=== PATIENT | female | born 1990 | race Caucasian/White ===

== ENCOUNTER 2020-06-09 00:35 | Inpatient (IN) | payer BC ==
[2020-06-09 01:36] LABS: Appearance,Urine Clear (Clear); Bacteria,Urine Rare /hpf; Bilirubin,Urine Negative (Negative); Blood,Urine Negative (Negative); Color,Urine Yellow; Glucose,Urine (UA) Negative (Negative); Hyaline Casts,Urine 3 /lpf (0-2); Ketones,Urine Trace (Negative); Leukocyte Esterase,Urine Trace (Negative); Mucus,Urine Moderate /hpf; Nitrite,Urine Negative (Negative); Protein,Urine 1+ (Negative); RBC,Urine 1 /hpf (0-5); Specific Gravity,Urine 1.029 (1.001-1.035); Squamous Epithelial Cell,Urine 2 /hpf (0-4); Urobilinogen,Urine <2.0 mg/dL (<2.0); WBC,Urine 6 /hpf (0-5)
[2020-06-09 02:50] LABS: ALT 11 U/L (4-34); AST 22 U/L (14-36); African American GFR (CKD) >90 (>60 ml/min/1.73 sqM); Blood Urea Nitrogen 11 mg/dL (7-17); LDH 364 U/L (313-618); Non-African American GFR(CKD) >90 (>60 ml/min/1.73 sqM); Uric Acid 5.9 mg/dL (3.7-7.4)
[2020-06-09 02:50] LABS: Amphetamine Screen,Urine Not Detected (NotDetected); Barbiturate Screen,Urine Not Detected (NotDetected); Benzodiazepines Screen,Urine Not Detected (NotDetected); Cocaine Screen,Urine Not Detected (NotDetected); Methadone Screen, Urine Not Detected (NotDetected); Opiate Screen,Urine Not Detected (NotDetected); Oxycodone Screen, Urine Not Detected (NotDetected); Phencyclidine Screen,Urine Not Detected (NotDetected); Tricyclic Antidepressant,Urine Not Detected (NotDetected); Urn Cannabinoid Scrn Not Detected (NotDetected)
[2020-06-09 02:52] LABS: Creatinine,Urine Random 245.6 mg/dL; Protein/Creatinine Ratio,Urine 0.033
[2020-06-09 03:04] LABS: Basophils % (A) 0 %; Eosinophils % (A) 0 %; HCT 36.8 % (34.0-46.0); HGB 12.7 gm/dL (11.4-16.0); Lymphocytes # (A) 1.9 k/uL (1.0-4.8); Lymphocytes % (A) 21 %; MCH 30.8 pg (25.0-35.0); MCHC 34.5 g/dL (31.0-37.0); MCV 89.4 fL (80.0-100.0); Mean Platelet Volume 7.2; Monocytes # (A) 0.5 k/uL (0-1.0); Monocytes % (A) 6 %; Neutrophils # (A) 6.5 k/uL (1.3-7.7); Neutrophils % (A) 72 %; Platelet Count 210 k/uL (150-450); RBC 4.12 m/uL (3.80-5.40); RDW 13.6 % (11.5-15.5)
[2020-06-09 03:33] LABS: INR 0.9 (<1.2); Prothrombin Time 9.5 sec (9.0-12.0)
[2020-06-09 03:45] LABS: Partial Thromboplastin Time 21.2 sec (22.0-30.0)
[2020-06-09] MEDS ORDERED: LIDOCAINE 0.5% (PF) 5 MG/ML (50 ML SDV) SQ PRN (03:59)
[2020-06-09] MEDS ORDERED: TERBUTALINE 1 MG/ML VIAL SQ PRN (03:59)
[2020-06-09] MEDS ORDERED: METHYLERGONOVINE 0.2 MG/ML 1 ML AMP IM PRN (03:59)
[2020-06-09] MEDS ORDERED: OXYTOCIN 10 UNIT/ML 1 ML VIAL IM PRN (03:59)
[2020-06-09] MEDS ORDERED: CARBOPROST TROMETHAMINE 250 MCG/ML 1 ML AMP IM PRN (03:59)
[2020-06-09] MEDS ORDERED: CLINDAMYCIN 900 MG in DEXTROSE 5% IN WATER 50 ML IVPB STA ×2 (04:05)
[2020-06-09] MEDS ORDERED: CLINDAMYCIN 600 MG in DEXTROSE 5% IN WATER 50 ML IVPB STA ×2 (04:09)
[2020-06-09] MEDS: LACTATED RINGERS 1,000 ML IV SCH ×3 (04:43→17:10)
[2020-06-09] MEDS: OXYTOCIN 30 UNITS/500 ML NS 30 UNIT in SALINE 1 500ML.BAG IV SCH (08:46)
--- NOTE | 2020-06-09 10:02 | P.HPOB ---
History of Present Illness H&P Date: 06/09/20 Chief Complaint: Urine term: Active labor Patient is a 22-year-old at 39 and 2 based on what she relates is a 6 week ultrasound through her primary care provider. She did not receive care essentially. She states that she saw her primary care provider's nurse or nurse practitioner through approximately 20 or so weeks before they were able to refer her to what I believe is a nurse rd lab technician who she says she saw on 2 occasions sometime after 27 weeks. She relates that sometime in April her family got Covid and she had not seen the provider since that time. She has no group B strep status she has no labs and no ultrasound. I note absolutely verification of do day, but she is making cervical change and an ultrasound at this point will not be terribly accurate due to position of the baby and active labor. Her story is, complicated by the fact that she relates that her boyfriend was arrested last night. She also relates that she was even sure what her provider's name was no exactly where they are located nor did she have a phone number. She believes she was to be delivered out of [facility] but they did not do rd lab technician delivers at that hospital. She told me that we would be unable to contact her provider as she was on vacation in [place] this week. It is curious from my standpoint that she knows that the provider will be gone this week despite the fact that she hasn't seen them in approximately 6 weeks. However, I have no way of individually verifying who this provider is so we are treating this as if she has had no care. She is dilated to 3 cm 80% effaced -2 station she was 1 cm on presentation. She does have a history of hypertension that her primary care provider. It was starting to workup prior to her . She's had several blood pressures that are mildly elevated and she relates that she was supposed to be taking some type of blood pressure medication but she doesn't know what was nor did she started. Reclamped labs were ordered and all were normal. Will plan artificial rupture membranes and expect vaginal delivery. She is not plan to use an epidural but that will depend on how she does pain-xiong. Past medical history none past surgical history wisdom teeth ALLERGIES ampicillin which is anaphylactic. Family history mother with breast cancer. Social history she denies area did a urine drug she was negative. Assessment intrauterine at term. Plan expect spontaneous vaginal delivery Past Medical History Past Medical History: No Reported History History of Any Multi-Drug Resistant Organisms: None Reported Additional Past Surgical History / Comment(s): Pt reports orthopedic surgery on foot and arm in past Past Anesthesia/Blood Transfusion Reactions: No Reported Reaction Past Psychological History: No Psychological Hx Reported Smoking Status: Never smoker Past Alcohol Use History: None Reported Past Drug Use History: None Reported - Past Family History Father Family Medical History: Hyperlipidemia, Hypertension Mother Family Medical History: Cancer Additional Family Medical History / Comment(s): Breast cancer Medications and Allergies Home Medications Medication Instructions Recorded Confirmed Type Pnv,Calcium 72/Iron/Folic Acid 1 tab PO DAILY 06/09/20 06/09/20 History [ Plus Tablet] Allergies Allergy/AdvReac Type Severity Reaction Status Date / Time Penicillins Allergy Severe Anaphylaxis Verified 06/09/20 04:09 Exam Osteopathic Statement: *. No significant issues noted on an osteopathic structural exam other than those noted in the History and Physical/Consult. Vital Signs Temp Pulse Resp BP Pulse Ox 06/09/20 04:06 98.1 F 88 16 132/92 06/09/20 03:24 68 16 120/78 06/09/20 00:51 97.0 F L 100 16 161/86 98 Intake and Output 06/08/20 06/09/20 06/09/20 22:59 06:59 14:59 Other: # Voids 1 Weight 96.615 kg - OBG Physical Exam Breast: both: normal (no masses) Abdomen: bowel sounds normal, no diffuse tenderness, no bruit present, no guarding noted, no hepatomegaly, no splenomegaly, no mass Vulva: both: normal Vagina: normal moisture, no discharge Cervix: no lesion, no discharge Uterus: normal size, normal contour Adnexa: both: normal Anus/Rectum: normal perianal skin, no rectal mass, no hemorrhoids, heme negative Results Result Diagrams: 06/09/20 02:30 06/09/20 04:38 Abnormal Lab Results - Last 24 Hours (Table) 06/09/20 06/09/20 Range/Units 00:59 02:30 APTT 21.2 L (22.0-30.0) sec Fibrinogen 544 H (200-500) mg/dL Urine Protein 1+ H (Negative) Urine Ketones Trace H (Negative) Ur Leukocyte Esterase Trace H (Negative) Urine WBC 6 H (0-5) /hpf Urine Bacteria Rare H (None) /hpf Hyaline Casts 3 H (0-2) /lpf Urine Mucus Moderate H (None) /hpf
[2020-06-09] MEDS: BUTORPHANOL 1 MG/ML 1 ML VIAL IV PRN ×2 (10:08→13:59)
[2020-06-09 10:17] LABS: Hepatitis B Surface Antigen Non-Reactive (Non-Reactive)
[2020-06-09] MEDS ORDERED: CLINDAMYCIN 900 MG in DEXTROSE 5% IN WATER 50 ML IVPB SCH ×2 (12:30)
[2020-06-09] MEDS: CLINDAMYCIN 600 MG in DEXTROSE 5% IN WATER 50 ML IVPB SCH ×4 (13:00→20:31)
[2020-06-09] MEDS ORDERED: fentaNYL (PF) 50 MCG/ML 5 ML AMP ONE (17:06)
[2020-06-09] MEDS ORDERED: SODIUM CHLORIDE 0.9% 100 ML BAG ONE (17:06)
[2020-06-09] MEDS ORDERED: ROPIVACAINE 5MG/ML 20ML VIAL ONE (17:06)
[2020-06-09] MEDS ORDERED: CITRIC ACID-SODIUM CITRATE 15 ML CUP PO ONE (21:17)
[2020-06-09] MEDS ORDERED: SUCCINYLCHOLINE CHLORIDE 100 MG/5 ML SYR IV ONE (21:31)
[2020-06-09] MEDS ORDERED: ONDANSETRON 4 MG/2 ML VIAL ONE (21:31)
[2020-06-09] MEDS ORDERED: ROCURONIUM 10 MG/ML (5 ML VIAL) IV ONE (21:31)
[2020-06-09] MEDS ORDERED: KETOROLAC 15 MG/ML 1 ML VIAL ONE (21:31)
[2020-06-09] MEDS ORDERED: OXYTOCIN 10 UNIT/ML 1 ML VIAL ONE (21:31)
[2020-06-09] MEDS ORDERED: NEOSTIGMINE 1 MG/ML 10 ML VIAL ONE (21:31)
[2020-06-09] MEDS ORDERED: GLYCOPYRROLATE 0.2 MG/ML 2 ML VIAL ONE (21:31)
[2020-06-09] MEDS ORDERED: PROPOFOL 10 MG/ML 20 ML VIAL IV ONE (21:31)
[2020-06-09] MEDS ORDERED: ONDANSETRON 4 MG/2 ML VIAL IVP PRN (22:21)
[2020-06-09] MEDS ORDERED: ZOLPIDEM 5 MG TAB PO PRN (22:21)
[2020-06-09] MEDS ORDERED: MEASLES-MUMPS-RUBELLA VACC/PF 12,500 UNIT/0.5 ML VIAL SQ ONE (22:21)
[2020-06-09] MEDS ORDERED: diphenhydrAMINE 25 MG CAP PO PRN (22:21)
[2020-06-09] MEDS ORDERED: METOCLOPRAMIDE 5 MG/ML 2 ML VIAL IVP PRN (22:21)
[2020-06-09] MEDS ORDERED: diphenhydrAMINE 50 MG/ML 1 ML VIAL IVP PRN ×2 (22:21)
[2020-06-09] MEDS ORDERED: NALOXONE 0.4 MG/ML 1 ML VIAL IV PRN (22:21)
[2020-06-09] MEDS ORDERED: diphenhydrAMINE 50 MG CAP PO PRN (22:21)
[2020-06-09] MEDS ORDERED: HYDROmorphone PCA 10 MG/50 ML BAG IV PRN (22:21)
--- NOTE | 2020-06-09 22:27 | P.OP ---
Date of Procedure: 06/09/20 Preoperative Diagnosis: Intrauterine at term: No care: Arrest of descent and dilation Postoperative Diagnosis: Same several pelvic disproportion Procedure(s) Performed: Primary low transverse section Anesthesia: GETA, epidural Surgeon: Mac De Jesus Industrial Design Engineer #1: Jean Marie Fairchild Estimated Blood Loss (ml): 500 IV fluids (ml): 500 Urine output (ml): 100 Pathology: other (Placenta) Condition: stable Disposition: floor Operative Findings: Female viable scores and weight pending Description of Procedure: Patient was taken to the operating suite where a general anesthetic was found be adequate. The epidural was not working and she declined spinal. Once anesthesia was adequate Pfannenstiel skin incision was made this incision was then carried through to the underlying layer of the fascia with the second knife. Fascia was then nicked in the midline and this opening was extended laterally with Lainez scissors. Superior and inferior aspect of this incision were then grasped with Carrol clamps elevated and sharply and bluntly dissected. Once this was completed peritoneal layer was entered sharply and this layer was then extended superiorly and inferiorly with good visualization of both bowel bladder. Bladder blade was then placed in the bladder flap identified. It was entered with Metzenbaum scissors and carried across face the uterus and then bluntly dissected out of the operative field. Knife was then used to incise uterus. The incision was fully developed with hemostat and extended bluntly. Head was then H medically delivered followed by anterior posterior shoulders from left occiput transverse position. Once baby was delivered nursery personnel was present to assume care. Umbilical cords clamped cut usual fashion and mouth nares were bulb suctioned. Placenta was then delivered intact Pitocin was added to the IV. Uterus was then exteriorized cleared of clots and debris and closed in 2 layers with 0 Vicryl suture. Once excellent hemostasis was obtained blood and debris was suctioned from the posterior cul-de-sac and uterus was reinserted into the abdomen. Peritoneal layer was then identified and sintia sed with 0 Vicryl suture. Fascial layer was closed with 0 Vicryl suture. One layer of 3-0 Vicryl was placed in deep subcuticular tissues to reapproximate skin and close the space. Skin was then closed with 3-0 Vicryl subcuticular. Sponge, lap, needle counts were all correct 2. Patient was then taken to the recovery room in stable and satisfactory condition.
[2020-06-10] MEDS: OXYTOCIN 30 UNITS/500 ML NS 30 UNIT in SALINE 1 500ML.BAG IV SCH (00:18)
[2020-06-10] MEDS: LACTATED RINGERS 1,000 ML IV SCH ×4 (00:38→11:18)
--- NOTE | 2020-06-10 06:34 | P.PNOBGPC ---
Subjective - Subjective Principal diagnosis: Post op day 1 Interval history: Overall Mela is doing well. She is able to ambulate and void. She is tolerating liquids BuSpar. We'll plan to increase her diet later today and plan to remove the ORTHOTIST/PROSTHETIST and switch her to pain pills later today as well. All questions are answered for her at this time. Her vital signs are overall stable. It is noted that her blood pressures have improved dramatically as well. Patient reports: Reports appetite normal, Reports voiding normally, Reports pain well controlled, Reports ambulating normally [place]: doing well Objective - Vital Signs Latest vital signs: Vital Signs Temp Pulse Resp BP Pulse Ox 06/10/20 04:00 98.1 F 78 16 103/65 94 L 06/10/20 00:46 97.0 F L 66 14 134/80 95 06/10/20 00:16 72 18 135/82 06/09/20 23:46 62 16 140/87 06/09/20 23:31 80 14 156/95 06/09/20 23:16 80 18 140/80 06/09/20 23:01 68 16 138/65 99 06/09/20 22:46 97.6 F 73 16 138/78 96 Intake and Output 06/09/20 06/09/20 06/10/20 14:59 22:59 06:59 Intake Total 1000 13.9 155.167 Output Total 700 Balance 1000 -686.1 155.167 Intake: IV 1000 Intake, IV Titration 13.9 155.167 Amount Oxytocin 30 Units/500 ml 13.9 155.167 Ns 30 unit In Saline 1 500ml.bag @ Per Protocol IV .[facility] Rx#:[id number] Output: Urine 200 Estimated Blood Loss 500 Other: # Voids 2 - Exam Lungs: bilateral: normal Chest: Normal S1, Normal S2 Extremities: Present: normal Abdomen: Present: normal appearance, soft. Absent: distention, tenderness Incision: Present: normal, dry, intact Uterus: Present: normal, firm
[2020-06-10 06:51] LABS: Basophils % (A) 0 %; Eosinophils % (A) 0 %; HCT 36.1 % (34.0-46.0); Lymphocytes # (A) 2.6 k/uL (1.0-4.8); Lymphocytes % (A) 20 %; MCH 29.7 pg (25.0-35.0); MCHC 33.2 g/dL (31.0-37.0); MCV 89.7 fL (80.0-100.0); Monocytes # (A) 0.5 k/uL (0-1.0); Monocytes % (A) 4 %; Neutrophils # (A) 9.9 k/uL (1.3-7.7); Neutrophils % (A) 75 %; Platelet Count 213 k/uL (150-450); RBC 4.02 m/uL (3.80-5.40); RDW 13.7 % (11.5-15.5); WBC 13.1 k/uL (3.8-10.6)
[2020-06-10] MEDS: KETOROLAC 15 MG/ML 1 ML VIAL IVP SCH ×3 (06:52→18:13)
[2020-06-10] MEDS: SENNOSIDES-DOCUSATE SODIUM 1 EACH TAB PO SCH (08:21)
[2020-06-10] MEDS ORDERED: diphenhydrAMINE 50 MG/ML 1 ML VIAL IVP PRN ×2 (18:37)
[2020-06-10] MEDS ORDERED: diphenhydrAMINE 25 MG CAP PO PRN (18:37)
[2020-06-10] MEDS ORDERED: METOCLOPRAMIDE 5 MG/ML 2 ML VIAL IVP PRN (18:37)
[2020-06-10] MEDS ORDERED: diphenhydrAMINE 50 MG CAP PO PRN (18:37)
[2020-06-10] MEDS ORDERED: NALOXONE 0.4 MG/ML 1 ML VIAL IV PRN (18:37)
[2020-06-10] MEDS ORDERED: ZOLPIDEM 5 MG TAB PO PRN (18:37)
[2020-06-10] MEDS ORDERED: ONDANSETRON 4 MG/2 ML VIAL IVP PRN (18:37)
[2020-06-10] MEDS ORDERED: ACETAMINOPHEN TAB 500 MG TAB PO PRN (18:37)
[2020-06-10] MEDS ORDERED: LACTATED RINGERS 1,000 ML IV SCH (18:45)
[2020-06-10] MEDS ORDERED: SENNOSIDES-DOCUSATE SODIUM 1 EACH TAB PO SCH (20:00)
[2020-06-11] MEDS: SENNOSIDES-DOCUSATE SODIUM 1 EACH TAB PO SCH ×3 (00:29→20:34)
[2020-06-11] MEDS: LABETALOL 100 MG TAB PO SCH ×4 (00:29→20:39)
[2020-06-11] MEDS: IBUPROFEN 600 MG TAB PO SCH ×4 (03:54→20:34)
[2020-06-11 07:43] LABS: Basophils % (A) 0 %; Eosinophils # (A) 0.1 k/uL (0-0.7); Eosinophils % (A) 1 %; HCT 31.8 % (34.0-46.0); HGB 10.8 gm/dL (11.4-16.0); Lymphocytes # (A) 1.5 k/uL (1.0-4.8); Lymphocytes % (A) 20 %; MCH 30.6 pg (25.0-35.0); MCV 89.8 fL (80.0-100.0); Monocytes # (A) 0.4 k/uL (0-1.0); Monocytes % (A) 5 %; Neutrophils # (A) 5.6 k/uL (1.3-7.7); Neutrophils % (A) 73 %; Platelet Count 183 k/uL (150-450); RBC 3.54 m/uL (3.80-5.40); RDW 13.7 % (11.5-15.5); WBC 7.6 k/uL (3.8-10.6)
--- NOTE | 2020-06-11 08:55 | P.PNOBGPC ---
Subjective - Subjective Principal diagnosis: Postop day 2 Interval history: Doing well other than sore. She is able to ambulate, void and she is tolerating a diet. All questions are answered for her at this time and will plan to continue current care Patient reports: Reports appetite normal [place]: doing well (On [place] blanket) Objective - Vital Signs Latest vital signs: Vital Signs Temp Pulse Resp BP Pulse Ox 06/11/20 00:00 98.9 F 90 16 137/85 100 06/10/20 20:00 98.8 F 87 16 135/88 98 06/10/20 16:00 98.3 F 94 16 135/75 98 06/10/20 12:00 98.1 F 81 16 129/86 98 Intake and Output 06/10/20 06/11/20 06/11/20 22:59 06:59 14:59 Other: # Voids 1 1 - Exam Lungs: bilateral: normal Chest: Normal S1, Normal S2 Extremities: Present: normal Abdomen: Present: normal appearance, soft. Absent: distention, tenderness Incision: Present: normal, dry, intact Uterus: Present: normal, firm - Labs Labs: Abnormal Lab Results - Last 24 Hours (Table) 06/11/20 Range/Units 06:38 RBC 3.54 L (3.80-5.40) m/uL Hgb 10.8 L (11.4-16.0) gm/dL Hct 31.8 L (34.0-46.0) %
[2020-06-11 15:17] LABS: C. trachomatis,PCR Negative (Neg,Equiv); Chlamydia trachomatis Source Urine; N. gonorrhoeae,PCR Negative (Neg,Equiv); Neisseria Source Urine
[2020-06-12] MEDS: IBUPROFEN 600 MG TAB PO SCH ×2 (03:35→11:38)
[2020-06-12] MEDS: SENNOSIDES-DOCUSATE SODIUM 1 EACH TAB PO SCH (08:09)
--- NOTE | 2020-06-12 09:08 | P.DS ---
Providers Date of admission: 06/09/20 04:03 Expected date of discharge: 06/12/20 Attending physician: Mac De Jesus Primary care physician: Stated None Hospital Course: Patient is doing very well postop day 3. She is ambulating, voiding and tolerating her diet. She voices no complaints. Vital signs are stable and afebrile. Heart regular, lungs clear, extremities without pain. Abdomen soft and nontender. Positive bowel sounds are noted. She has minimal swelling in her incision is clean dry and intact. She'll follow up with me in 1 week. Prescription for Motrin and [place] or forwarded to the pharmacy. All questions are answered for her prior to her discharge. It is noted that her blood pressures have remained relatively stable without taking labetalol consistently therefore we'll discharge her home without a prescription and we'll reevaluate her blood pressure in the office. Will be encouraged to follow up with this with her primary care provider moving forward. Patient Condition at Discharge: Good Plan - Discharge Summary New Discharge Prescriptions: New HYDROcodone/APAP 5-325MG [[place] 5-325] 1 tab PO Q4HR PRN #30 tab PRN Reason: Pain Ibuprofen [Motrin] 600 mg PO Q6HR PRN #30 tab PRN Reason: Pain No Action Pnv,Calcium 72/Iron/Folic Acid [ Plus Tablet] 1 tab PO DAILY Discharge Medication List Pnv,Calcium 72/Iron/Folic Acid [ Plus Tablet] 1 tab PO DAILY 06/09/20 [History] HYDROcodone/APAP 5-325MG [[place] 5-325] 1 tab PO Q4HR PRN #30 tab 06/12/20 [Rx] Ibuprofen [Motrin] 600 mg PO Q6HR PRN #30 tab 06/12/20 [Rx] Follow up Appointment(s)/Referral(s): Mac De Jesus DO [Doctor of Osteopathic Medicine] - 1 Week Activity/Diet/Wound Care/Special Instructions: Lifting, limit stairs and driving, and pelvic rest. If any high temperatures, heavy bleeding, or severe pain call my office. No tub baths for 2 weeks, showering is fine. wash and clean incision twice daily with gentle soap and water Discharge Disposition: HOME SELF-CARE
[2020-06-12 09:50] VITALS: RESP 18
[2020-06-12] MEDS: LABETALOL 100 MG TAB PO SCH (09:51)
[2020-06-12 12:27] VITALS: BP 134/86; PULSE 90; TEMP 98.5
[2020-06-12] MEDS: LACTATED RINGERS 1,000 ML IV SCH (12:29)
[2020-06-16 17:45] LABS: HIV 2 AB Non-Reactive (Non-Reactive); HIV AB P24 Non-Reactive (Non-Reactive); HIV P24 AG Non-Reactive (Non-Reactive)
== END 2020-06-12 14:10 | disposition home or self-care (01) | DRG 788 ==
LOC: FBPOP 00:35 → 4FBP 04:03
PROVIDERS: ADMIT Obstetrics & Gynecology; ATTEND Obstetrics & Gynecology
PROC: 10D00Z1 Extraction of Products of Conception, Low, Open Approach (ICD-10-PCS; principal; 2020-06-09 22:00)
DX: O33.8 Maternal care for disproportion of other origin (principal); O16.4 Unspecified maternal hypertension, complicating childbirth; I10 Essential (primary) hypertension; Z37.0 Single live birth; Z3A.39 39 weeks gestation of pregnancy; Z80.3 Family history of malignant neoplasm of breast; Z82.49 Family history of ischemic heart disease and other diseases of the circulatory system; Z88.0 Allergy status to penicillin
CPT/HCPCS: 59025; 80306; 81001; 82565; 82570; 82947; 83615; 84156; 84450; 84460; 84520; 84550; 85025; 85384; 85610; 85730; 86762; 86780; 86850; 86900; 86901; 87340; 87390; 87491; 87591; 99213

== ENCOUNTER 2021-09-07 12:28 | Outpatient (CLI) | payer BC ==
[2021-09-07 13:46] VITALS: BP 130/75; PULSE 90; RESP 18; TEMP 97.2
--- NOTE | 2021-09-26 08:30 | P.MSEPDOC ---
Presenting Problems - Arrival Data Date of Arrival on Unit: 09/07/21 Time of Arrival on Unit: 12:28 Mode of Transport: Ambulatory - Complaint OB-Reason for Admission/Chief Complaint: Rule Out SROM Comment: possible ROM 09/06 at 1999 Medical History - Information : 2 Para: 1 Term: 1 : 0 Abortions: Spontaneous or Elective: 0 Number of Living Children: 1 - Gestational Age Gestational Age by RODRIGO (wks/days): 36 Weeks and 4 Days - History Complications: No Care, Prior Review of Systems - Review of Systems Constitutional: No problems Breast: No problems ENT: No problems Cardiovascular: No problems Respiratory: No problems Gastrointestinal: No problems Genitourinary: No problems Musculoskeletal: No problems Neurological: No problems Skin: No problems Vital Signs - Temperature Temperature: 97.2 F Temperature Source: Temporal Artery Scan - Pulse Pulse Oximetery Pulse Rate: 90 Pulse Assessment Method: Pulse Oximetry - Respirations Respiratory Rate: 18 Oxygen Delivery Method: Room Air O2 Sat by Pulse Oximetry: 100 - Blood Pressure Right Arm Blood Pressure: 130/75 Blood Pressure Mean: 93 Blood Pressure Source: Automatic Cuff Medical Screen Scoring - Assessment - Baby A Baseline FHR: 140 Heart Rate - NICHD Category: Category I (Normal) NST: Reactive Physician Notification - Physician Notified Physician Notified Date: 09/07/21 Physician Notified Time: 13:25 Physician: Zita Scherer Order Received: Yes - Notification Comment Comment: Dr. Scherer called, report given on maternal and status, c/o possible ROM around 1999 last night and occassional leaking throughout the day. Pt has had no PNC other than an U/S at 28 weeks at the center. Pt was previously a c/s. Amnisure negative, NST reactive, no contractions noted via TOCO or stated by pt. Pt's previous delivery was with Dr. De Jesus and all labs from that are negative or non-reactive. No SVE performed, per Dr. Scherer, no SVE is required. Orders to discharge pt home with instructions to contact [facility] tomorrow and inquire about obtaining care. Maternal Triage Index - Maternal Triage Index Presenting for scheduled procedure w/no complaint: No - Stat/Priority 1 Stat Priority 1: No - Urgent/Priority 2 Urgent Priority 2: No - Prompt/Priority 3 Prompt Priority 3: Yes Criteria Met for Priority 3: 36 4/7 weeks, possible ROM 09/06 at 2000 Disposition - Disposition OB Disposition: Discharge to home Discharge Date: 09/07/21 Discharge Time: 13:35 I agree with the RN Medical Screening Exam: Yes Case reviewed; plan agreed upon as documented in EMR&OBIX.: Yes Diagnosis: Rule out labor
== END 2021-09-07 13:35 | disposition home or self-care (01) ==
LOC: FBPOP 12:28
PROVIDERS: ATTEND Obstetrics & Gynecology
DX: O88.113 Amniotic fluid embolism in pregnancy, third trimester (principal); Z3A.36 36 weeks gestation of pregnancy; Z88.0 Allergy status to penicillin; Z91.018 Allergy to other foods
CPT/HCPCS: 59025; 84112; 99203; 99213

== ENCOUNTER 2021-10-07 10:08 | Inpatient (IN) | payer BC ==
[2021-10-07] MEDS ORDERED: CITRIC ACID-SODIUM CITRATE 15 ML CUP PO ONE (10:28)
[2021-10-07] MEDS ORDERED: LACTATED RINGERS 1,000 ML IV ONE (10:28)
[2021-10-07] MEDS ORDERED: CLINDAMYCIN 900 MG in DEXTROSE 5% IN WATER 50 ML IVPB ONE ×2 (10:28)
[2021-10-07 11:00] LABS: Basophils % (A) 0 %; Eosinophils % (A) 0 %; HCT 42.7 % (34.0-46.0); HGB 14.2 gm/dL (11.4-16.0); Lymphocytes # (A) 1.7 k/uL (1.0-4.8); Lymphocytes % (A) 22 %; MCHC 33.2 g/dL (31.0-37.0); MCV 87.1 fL (80.0-100.0); Mean Platelet Volume 7.2; Monocytes # (A) 0.3 k/uL (0-1.0); Monocytes % (A) 4 %; Neutrophils # (A) 5.3 k/uL (1.3-7.7); Neutrophils % (A) 71 %; Platelet Count 210 k/uL (150-450); RDW 15.4 % (11.5-15.5); WBC 7.5 k/uL (3.8-10.6)
[2021-10-07] MEDS ORDERED: GENTAMICIN 340 MG in SODIUM CHLORIDE 0.9% 100 ML IVPB ONE (11:00)
[2021-10-07] MEDS: LACTATED RINGERS 1,000 ML IV SCH ×3 (11:42→18:36)
[2021-10-07] MEDS ORDERED: MORPHINE SULFATE (PF) 0.3 MG/0.3 ML SYR ONE (11:54)
[2021-10-07] MEDS ORDERED: KETOROLAC 15 MG/ML 1 ML VIAL ONE (11:54)
[2021-10-07] MEDS ORDERED: ONDANSETRON 4 MG/2 ML VIAL ONE (11:54)
[2021-10-07] MEDS ORDERED: OXYTOCIN 30 UNITS/500 ML NS BAG IV ONE (11:54)
[2021-10-07] MEDS ORDERED: NALBUPHINE 10 MG/ML (1 ML AMP) ONE (11:54)
--- NOTE | 2021-10-07 12:54 | P.HPOB ---
History of Present Illness H&P Date: 10/07/21 Chief Complaint: Term , history of previous section This is a 31 year old 3 para 1011 woman with an estimated due date 10/13/2021 based on the LMP. She had a 28 week ultrasound that a center however had no consistent care. She presented at 35 weeks gestation to our office. She is a history of a previous low transverse section in June 2020 and declines trial of labor. Laboratory data: Group B strep positive, blood type O positive, antibody screen negative, rubella immune, hepatitis B surface antigen negative, HIV negative, RPR nonreactive. Obstetric history: Term in 2020, spontaneous AB 2014. Review of Systems All systems: negative Past Medical History Past Medical History: No Reported History History of Any Multi-Drug Resistant Organisms: None Reported Additional Past Surgical History / Comment(s): Pt reports orthopedic surgery on foot and arm in past Past Anesthesia/Blood Transfusion Reactions: No Reported Reaction Past Psychological History: No Psychological Hx Reported Smoking Status: Never smoker Past Alcohol Use History: None Reported Past Drug Use History: None Reported - Past Family History Father Family Medical History: Hyperlipidemia, Hypertension Mother Family Medical History: Cancer Additional Family Medical History / Comment(s): Breast cancer Medications and Allergies Home Medications Medication Instructions Recorded Confirmed Type Vit No.180/Iron/Folic 1 tab PO DAILY 06/09/20 09/07/21 History [ Plus Tablet] Allergies Allergy/AdvReac Type Severity Reaction Status Date / Time Penicillins Allergy Severe Anaphylaxis Verified 10/07/21 10:28 strawberry Allergy Anaphylaxis Verified 10/07/21 10:28 Exam Vital Signs Temp Pulse Resp BP Pulse Ox 10/07/21 10:59 97.9 F 80 16 145/66 98 Intake and Output 10/06/21 10/07/21 10/07/21 22:59 06:59 14:59 Other: Weight 92.986 kg This is a pleasant, visibly gravid female in no acute distress. HEENT exam is unremarkable. Lungs are clear and the heart is a regular rate and rhythm. The abdomen is gravid with a fundal height less than stated gestational age. Pelvic exam's preferred. Extremities free of any edema erythema or tenderness. heart tones are category 1 by external monitoring Results Result Diagrams: 10/07/21 10:47 Assessment and Plan (1) Term Current Visit: Yes Status: Acute Code(s): Z34.90 - ENCNTR FOR SUPRVSN OF NORMAL , UNSP, UNSP TRIMESTER SNOMED Code(s): 31396030 (2) Insufficient care Current Visit: Yes Status: Acute Code(s): O09.30 - SUPRVSN OF PREG W INSUFFICIENT ANTENAT CARE, UNSP TRIMESTER SNOMED Code(s): 6701063845026 (3) History of Current Visit: Yes Status: Acute Code(s): Z98.891 - HISTORY OF UTERINE SCAR FROM PREVIOUS SURGERY SNOMED Code(s): 863935036 Plan: 31-year-old 3 para 1011 woman admitted at 39 weeks gestation for planned repeat low transverse section. Minimal care throughout . The procedure has been reviewed with the patient in the office in detail including the risks and alternatives. Risks include bleeding, transfusion, infection, damage to bowel, bladder, ureters and/or other internal or infant structures. Patient declines tubal ligation. Patient declines trial of labor.
[2021-10-07] MEDS ORDERED: diphenhydrAMINE 50 MG/ML 1 ML VIAL IVP PRN ×2 (12:56)
[2021-10-07] MEDS ORDERED: NALOXONE 0.4 MG/ML 1 ML VIAL IV PRN (12:56)
[2021-10-07] MEDS ORDERED: diphenhydrAMINE 25 MG CAP PO PRN (12:56)
[2021-10-07] MEDS ORDERED: ZOLPIDEM 5 MG TAB PO PRN (12:56)
[2021-10-07] MEDS ORDERED: METOCLOPRAMIDE 5 MG/ML 2 ML VIAL IVP PRN (12:56)
[2021-10-07] MEDS ORDERED: diphenhydrAMINE 50 MG CAP PO PRN (12:56)
[2021-10-07] MEDS ORDERED: ONDANSETRON 4 MG/2 ML VIAL IVP PRN (12:56)
[2021-10-07] MEDS ORDERED: HYDROmorphone 1 MG/ML 1 ML SYRINGE IVP PRN (12:56)
--- NOTE | 2021-10-07 12:56 | P.OP ---
Date of Procedure: 10/07/21 Preoperative Diagnosis: Intrauterine at 39 weeks gestation History of previous low transverse section Insufficient care Postoperative Diagnosis: Same Procedure(s) Performed: Repeat low transverse section Anesthesia: spinal Surgeon: Zita Scherer Automatic Seamer #1: Batsheva Macdonald Estimated Blood Loss (ml): 300 IV fluids (ml): 600 Urine output (ml): 50 Pathology: none sent Condition: stable Disposition: floor Indications for Procedure: History of previous low transverse section Operative Findings: Male infant in the vertex occiput anterior position with Apgars of 8 at 1 minute and 9 at 5 minutes weighing 7 lbs. 7 oz., 3380 g. Intact, three-vessel cord placenta. Very thin anterior low uterine segment. Description of Procedure: After the patient was met preoperatively and all questions were answered, she was taken to the operating room where spinal anesthetic was administered without incident. She was then positioned, prepped and draped in the dorsal supine position with a leftward tilt. Chen catheter was placed. After anesthetic was confirmed adequate, a low transverse skin incision was made following the pre- existing scar. This was carried down to the underlying fascia both sharply and with the electrocautery. The fascia was then incised in the midline and extended bilaterally with the Lainez scissors. The superior aspect of the fascial incision was elevated and the underlying rectus muscles dissected off sharply and with the electrocautery. The inferior aspect of the fascial incision was also elevated and the underlying rectus muscles dissected off sharply. The muscles were adherent in the midline. These were bluntly and the peritoneum was tented up with hemostats. The peritoneum was entered sharply with the Metzenbaum scissors. The peritoneal incision was extended inferiorly and superiorly with good visualization of the bladder. The bladder blade was placed. The vesicouterine peritoneum was identified, tented up and entered sharply, the bladder flap was created both sharply and digitally. A low transverse uterine incision was then made sharply and carried down to the underlying amniotic membranes. Membranes were ruptured and clear fluid was noted. The uterine incision was extended bilaterally bluntly. The infant's head was delivered from the incision without difficulty. The nose and mouth were bulb suctioned. The rest of the was delivered onto the field without difficulty. And cut and the infant was taken to the warmer. An intact, three-vessel cord placenta was then manually removed and the uterus was exteriorized. The uterus was cleared of all clot and debris. The uterine incision was delineated with Back clamps. The uterine incision was then closed in a running locked fashion with 0 Vicryl suture. Second imbricating layer of the same was placed. Additional [id number] sutures were placed where necessary along the incision for hemostasis. The uterus was then returned to the abdomen and the gutters were cleared of all clot and debris. The uterine incision was reinspected and Bovie electrocautery was utilized were necessary for hemostasis. The fascial edges, peritoneal edges and rectus muscles were inspected and Bovie electrocautery utilized were necessary for hemostasis. The fascia was then closed in a running fashion with 0 Vicryl suture. The subcuticular tissue was copiously suction irrigated and Bovie electrocautery utilized were necessary for hemostasis. 3-0 Vicryl suture was utilized to reapproximate the subcuticular tissue. The skin was then closed in a subcutaneous fashion with 4-0 Vicryl suture. All counts reported to me as correct by the operating room staff at the end of the procedure. The patient received antibiotics preoperatively and Pitocin following cord clamp. Mother and infant were both transported from the room in stable condition.
[2021-10-07] MEDS ORDERED: OXYTOCIN 30 UNITS/500 ML NS 30 UNIT in SALINE 1 500ML.BAG IV SCH (13:00)
[2021-10-07] MEDS: ACETAMINOPHEN TAB 500 MG TAB PO SCH (16:07)
[2021-10-07] MEDS: SENNOSIDES-DOCUSATE SODIUM 1 EACH TAB PO SCH (19:53)
[2021-10-07] MEDS: IBUPROFEN 600 MG TAB PO SCH (20:15)
[2021-10-07] MEDS: KETOROLAC 15 MG/ML 1 ML VIAL IVP SCH (23:13)
[2021-10-08] MEDS: LACTATED RINGERS 1,000 ML IV SCH ×5 (00:07→15:33)
[2021-10-08] MEDS: ACETAMINOPHEN TAB 500 MG TAB PO SCH ×5 (00:07→22:13)
[2021-10-08] MEDS: IBUPROFEN 600 MG TAB PO SCH ×4 (00:07→19:45)
[2021-10-08 06:05] LABS: Basophils % (A) 1 %; Eosinophils # (A) 0.1 k/uL (0-0.7); Eosinophils % (A) 1 %; HGB 11.3 gm/dL (11.4-16.0); Hypochromasia Slight; Lymphocytes # (A) 1.3 k/uL (1.0-4.8); Lymphocytes % (A) 19 %; MCH 28.1 pg (25.0-35.0); MCHC 31.4 g/dL (31.0-37.0); MCV 89.2 fL (80.0-100.0); Mean Platelet Volume 7.1; Monocytes # (A) 0.3 k/uL (0-1.0); Monocytes % (A) 4 %; Neutrophils # (A) 5.4 k/uL (1.3-7.7); Neutrophils % (A) 75 %; Platelet Count 159 k/uL (150-450); RBC 4.04 m/uL (3.80-5.40); RDW 15.1 % (11.5-15.5); WBC 7.2 k/uL (3.8-10.6)
[2021-10-08] MEDS: KETOROLAC 15 MG/ML 1 ML VIAL IVP SCH ×2 (06:59→12:54)
--- NOTE | 2021-10-08 08:17 | P.PNOBGPC ---
Subjective - Subjective Principal diagnosis: Postop day 1 Interval history: Feeling very well, minimal pain. Patient reports: Reports appetite normal, Reports voiding normally, Reports pain well controlled, Reports ambulating normally : doing well, nursing well Objective - Vital Signs Latest vital signs: Vital Signs Temp Pulse Resp BP Pulse Ox 10/08/21 04:00 97.6 F 86 16 103/66 100 10/07/21 23:16 98.3 F 83 16 112/70 98 10/07/21 20:00 98.0 F 66 16 116/71 98 10/07/21 16:00 98.1 F 59 L 15 119/75 99 10/07/21 14:52 96.7 F L 55 L 17 109/66 100 10/07/21 14:22 45 L 16 108/61 98 10/07/21 13:52 53 L 17 130/70 10/07/21 13:34 67 16 119/77 98 10/07/21 13:21 60 16 139/62 97 10/07/21 13:07 60 17 133/60 97 10/07/21 12:52 97.1 F L 61 17 124/64 100 10/07/21 10:59 97.9 F 80 16 145/66 98 Intake and Output 10/07/21 10/08/21 10/08/21 22:59 06:59 14:59 Intake Total 360 Balance 360 Intake: Oral 360 Other: Voiding Method Indwelling Catheter # Voids 1 1 - Exam Extremities: Present: normal Abdomen: Present: normal appearance, soft Incision: Present: normal, dry, intact. Absent: erythematous Uterus: Present: normal, firm. Absent: tenderness - Labs Labs: Abnormal Lab Results - Last 24 Hours (Table) 10/08/21 Range/Units 05:55 Hgb 11.3 L (11.4-16.0) gm/dL Assessment and Plan (1) Term Current Visit: Yes Status: Acute Code(s): Z34.90 - ENCNTR FOR SUPRVSN OF NORMAL , UNSP, UNSP TRIMESTER SNOMED Code(s): 43771176 (2) Insufficient care Current Visit: Yes Status: Acute Code(s): O09.30 - SUPRVSN OF PREG W INSUFFICIENT ANTENAT CARE, UNSP TRIMESTER SNOMED Code(s): 6895477501987 (3) History of Current Visit: Yes Status: Acute Code(s): Z98.891 - HISTORY OF UTERINE SCAR FROM PREVIOUS SURGERY SNOMED Code(s): 504089068 Plan: Postop day 1 status post repeat low transverse section. Recovering well. Routine care and anticipate discharge home tomorrow.
--- NOTE | 2021-10-08 09:50 | P.PN ---
Progress Note - Text Progress Note Date: 10/08/21 Postoperative day 1 status post section under spinal anesthesia, and i ntrathecal morphine given for postoperative analgesia, patient doing well, there is no anesthesia related complications, Patient had no headache, vital signs stable , Assessment and plan= postop day 1 status post , doing well there is no anesthesia related complication.
[2021-10-08] MEDS: SENNOSIDES-DOCUSATE SODIUM 1 EACH TAB PO SCH ×2 (10:30→19:46)
[2021-10-09] MEDS: IBUPROFEN 600 MG TAB PO SCH ×2 (01:09→06:28)
[2021-10-09] MEDS: ACETAMINOPHEN TAB 500 MG TAB PO SCH ×2 (05:37→12:15)
--- NOTE | 2021-10-09 08:19 | P.DS ---
Providers Date of admission: 10/07/21 10:08 Expected date of discharge: 10/09/21 Attending physician: Zita Scherer Primary care physician: Homar Arnaud - Discharge Diagnosis(es) (1) Term Current Visit: Yes Status: Acute (2) Insufficient care Current Visit: Yes Status: Acute (3) History of Current Visit: Yes Status: Acute Hospital Course: This is a 31-year-old 3 now para 2012 woman who is admitted at 39 weeks gestation for scheduled repeat low transverse section. She presented late in the for care at approximately 36 weeks gestation. She had a history of a previous low transverse section and declines trial of labor. Following admission she underwent an uncomplicated repeat low transverse section. Findings at the time of surgery were significant for a liveborn male with Apgars of 8 at 1 minute and 9 at 5 minutes weighing 7 lbs. 7 oz. The patient's postoperative course was entirely unremarkable. By postoperative day #1 she was ambulating and voiding without difficulty. She was tolerating a regular diet and her pain was well-controlled with oral pain medications. By postoperative day #2 she continued to do well. Her incision did have some ecchymoses but otherwise was well healing. She had minimal lochia. Her pain was well-controlled. Her vital signs were stable and her postoperative labs were within normal limits. She was therefore discharged home with routine instructions for postoperative care and follow-up. Procedures: Repeat low transverse section Patient Condition at Discharge: Good Plan - Discharge Summary New Discharge Prescriptions: New Ibuprofen [Motrin] 600 mg PO Q6H tab Acetaminophen Tab [Tylenol] 1,000 mg PO Q6H tab Continue Vit No.180/Iron/Folic [ Plus Vitamin-Mineral] 1 tab PO DAILY Discharge Medication List Vit No.180/Iron/Folic [ Plus Vitamin-Mineral] 1 tab PO DAILY 06/09/20 [History] Acetaminophen Tab [Tylenol] 1,000 mg PO Q6H tab 10/09/21 [Rx] Ibuprofen [Motrin] 600 mg PO Q6H tab 10/09/21 [Rx] Follow up Appointment(s)/Referral(s): Zita Scherer MD [STAFF PHYSICIAN] - 2 Weeks Activity/Diet/Wound Care/Special Instructions: Follow-up in 2 weeks after surgery in the office. Call the office with any concerning signs or symptoms including fever greater than 101, severe abdominal pain, heavy vaginal bleeding, signs of wound infection, increased swelling or redness of the lower extremities, signs of depression. No driving for 2 weeks after surgery. No heavy lifting or vigorous activity until reevaluated in the office. No intercourse for 6 weeks after delivery. Discharge Disposition: HOME SELF-CARE
[2021-10-09 08:48] VITALS: BP 121/77; PULSE 77; RESP 18; TEMP 98.4
[2021-10-09] MEDS: SENNOSIDES-DOCUSATE SODIUM 1 EACH TAB PO SCH (09:15)
== END 2021-10-09 14:00 | disposition home or self-care (01) | DRG 788 ==
LOC: 4FBP 10:08
PROVIDERS: ADMIT Obstetrics & Gynecology; ATTEND Obstetrics & Gynecology
PROC: 10D00Z1 Extraction of Products of Conception, Low, Open Approach (ICD-10-PCS; principal; 2021-10-07 12:00)
DX: O34.211 Maternal care for low transverse scar from previous cesarean delivery (principal); O99.824 Streptococcus B carrier state complicating childbirth; O34.593 Maternal care for other abnormalities of gravid uterus, third trimester; Z88.0 Allergy status to penicillin; Z3A.39 39 weeks gestation of pregnancy; Z37.0 Single live birth
CPT/HCPCS: 85025; 86850; 86900; 86901